=== PATIENT | female | born 2000 | race Caucasian/White ===

== ENCOUNTER 2018-09-03 00:41 | Emergency (ER) | payer BC, OTHER ==
[2018-09-03] MEDS: HYDROCODONE/APAP (5/325) TAB PO (01:17)
== END 2018-09-03 02:51 | disposition home or self-care (01) ==
LOC: FTE 02:51
DX: S99.921A Unspecified injury of right foot, initial encounter (principal); W20.8XXA Other cause of strike by thrown, projected or falling object, initial encounter; Y92.9 Unspecified place or not applicable
CPT/HCPCS: 73630; 99283-25